=== PATIENT | male | born 1975 | race African-American/Black ===

== ENCOUNTER 2016-11-27 14:25 | Observation (INO) ==
[2016-11-27] MEDS ORDERED: ASPIRIN 325 MG TABLET PO STA (15:20)
[2016-11-27] MEDS ORDERED: ENOXAPARIN 100 MG/ML SYRINGE SUBCUT STA (15:20)
--- NOTE | 2016-11-27 15:23 | EKG Report ---
Stationary ECG Study [facility] ER Test Date: 11/27/2016 2:33:45 PM Pat Name: ALEX DORMAN Department: Room: Gender: M Signaling Project Engineer: Jocelyn Perry : 1975 Requested by: Keith Olvera Order Number: [id number] Reading MD: MUNA DESIR Intervals [place] Rate: 80 P: 81 CO: 139 QRS: 86 QRSD: 85 T: 73 QT: 392 QTc: 427 Interpretive Statements SINUS RHYTHM Electronically Signed On 12-01-16 07:22:32 PUBLIC HEALTH SERVICE OFFICER by MUNA DESIR [id number]
--- NOTE | 2016-11-27 15:24 | Emergency Department Note ---
Mayco Mckay Jamie, am scribing for, and in the presence of, Keith Castañeda MD 15: 08. Maddy Mckay James D, MD, personally performed the services described in this documentation, ascribed by Rickey Mao in my presence, and it is both accurate and complete 524 . Arrival - Arrival Chief Complaint: Chest Pain Stated Complaint: chest pain ED Nursing Triage Note: pt reports he started having chest tightness this afternoon. denies sob. Mode of Arrival: Ambulatory Limitations: No Limitations Source: Patient, RN Notes Reviewed - History of Present Illness HPI Narrative: Patient is a 41 y/o male who presents to the ED c/o chest tightness associated with SOB. Patient states that sxs onset on yesterday. He describes pain as constant and chest tightness. Patient denies nausea/vomiting, fever/chills, or diaphoresis. Onset (ago): hour(s) (2) Consistency: constant Severity: moderate Allergies/Adverse Reactions: Allergies Allergy/AdvReac Type Severity Reaction Status Date / Time No Known Allergies Allergy Unverified 11/27/16 14:37 Home Medications: Home Medications Medication Instructions Recorded Confirmed Type No Known Home Medications [No 11/27/16 11/27/16 History Known Home Medications] Review of System - Review of System 12 point system: reviewed and no additional remarkable complaints except as stated - Review of System Constitutional: Absent: chills, diaphoresis, fever, weakness Eyes: Absent: vision change Respiratory: Present: respiratory distress. Absent: cough Cardiovascular: Present: chest pain (Tightness) Gastrointestinal: Absent: abdominal pain, nausea, vomiting, diarrhea, constipation Musculoskeletal: Absent: joint swelling Skin: Absent: rash, change in color Neurological: Absent: headache, weakness, numbness, confusion Hematological/Lymphatic: Absent: easy bleeding, easy bruising Medical,Surgical,& Family Hx - Social History Smoking Status: Smoker, status unknown Exam Vital Signs: Vital Signs Temperature 98.3 F 11/27/16 14:35 Pulse Rate 75 11/27/16 14:35 Respiratory Rate 19 11/27/16 16:01 Blood Pressure 146/83 11/27/16 14:35 O2 Sat by Pulse Oximetry 100 11/27/16 14:35 GENERAL: This is a well-nourished well-developed black male in no apparent distress. VITAL SIGNS: Reviewed HEENT: Head is atraumatic and normocephalic. Pupils are equal round react to light. Extraocular movements are intact. Oropharynx is benign with moist mucous membranes. NECK: Neck is soft and supple without tenderness. There are no masses. There is no lymphadenopathy. LUNGS: Lungs are clear to auscultation. Chest rises symmetrically. There is no chest wall tenderness. CV: Heart is regular rate and rhythm without murmurs rubs or gallops. ABDOMEN: Abdomen is soft, nontender to palpation. There are no abdominal abnormal masses palpated. There is no organomegaly. Bowel sounds are present and active. SKIN: Skin is warm and dry. No rash. EXTREMITIES: Patient has full range of motion without tenderness. There is no pedal edema. NEUROLOGIC: Awake alert and oriented 4. Cranial nerves II through XII are grossly intact. Motor is 5 over 5 in all extremities bilaterally. Deep tendon reflexes are 2+ and bilaterally equal. Course - Consultations Consultation #1: Discussed with hospitalist. Patient will be admitted to their service. Time: 17:10 Results - Labs CBC & BMP: 11/27/16 15:27 11/27/16 15:27 Lab Results: I have reviewed the patients labs - EKG EKG results: interpreted by ERMD - Impressions EKG: Normal sinus rhythm with a rate of 80, normal ST-T waves, normal axis. - Diagnostic Findings Procedure: Chest x-ray: image reviewed by me (Hyperinflation bilaterally, no infiltrates, no cardiomegaly.) Disposition Clinical Impression: Chest pain, Nicotine addiction Case discussed with: patient Disposition: Still a Patient Condition: Stable Time of Disposition: 17:10
[2016-11-27 15:44] LABS: Basophils % 0.6 % (0.0-0.8); Eosinophils # 0.2 10*3/uL (0.0-0.87); Eosinophils % 2.9 % (0.00-10.9); Hematocrit 39.8 VOL% (42.0-52.0); Hemoglobin 13.9 GM/DL (14.0-18.0); Immature Granulocytes % 0.2 %; Immature Granulocytes Absolute 0.01 #; Lymphocytes # 1.4 10*3/uL (1.4-4.0); Lymphocytes % 26.4 % (21.2-54.2); Mean Corpuscular HGB Conc 34.9 GM/DL (32-36); Mean Corpuscular Hemoglobin 32 PG (27-34); Mean Corpuscular Volume 91.9 FL (87-102); Mean Platelet Volume 10.3 FL (9.6-12.0); Monocytes # 0.6 10*3/uL (0.11-0.8); Monocytes % 10.3 % (1.7-12.7); Neutrophils # 3.3 10*3/uL (1.4-7.4); Neutrophils % 59.6 % (38.7-73.9); Platelet Count 218 T/CUMM (130-400); Red Blood Count 4.33 MC/CUMM (3.8-5.5); Red Cell Distribution Width 13.2 % (9.3-17.3); White Blood Count 5.5 T/CUMM (4-12)
[2016-11-27] MEDS ORDERED: ENOXAPARIN 80 MG/0.8 ML SYRINGE SUBCUT ONE (15:50)
[2016-11-27] MEDS ORDERED: ASPIRIN 325 MG TABLET ONE (15:50)
[2016-11-27 15:54] LABS: PT Patient Result 10.6 SECS; Partial Thromboplastin Time 31.1 SECS (0-40)
--- NOTE | 2016-11-27 15:55 | XRay Report ---
History: Chest pain Date: 11/27/2016 Study: Chest x-ray PA and lateral Comparison exam: No previous The cardiomediastinal silhouette and pulmonary vasculature are unremarkable. The lungs and pleural spaces are clear. The osseous structures are unremarkable. Impression: No acute cardiopulmonary process PROCEDURE INTERPRETED AT [facility] Final Report Signed by: Dr. Jesi Pendleton
[2016-11-27 16:06] LABS: Albumin 3.9 G/DL (3.4-5.0); Bilirubin,Total 0.5 MG/DL (0.2-1.0); Calcium 9.2 MG/DL (8.5-10.1); Osmolality,Calculated 284.8 MOS/KG (273-304); Total Protein 7.7 G/DL (6.4-8.3)
[2016-11-27 17:02] LABS: Barbiturates Screen,Urine Negative (Negative); Benzodiazepines Screen,Urine Negative (Negative); Cannabinoid Screen,Urine Positive (Negative); Opiate Screen,Urine Negative (Negative); Phencyclidine Screen,Urine Negative (Negative)
[2016-11-27] MEDS ORDERED: ENOXAPARIN 40 MG/0.4 ML SYRINGE SUBCUT SCH (18:21)
[2016-11-27] MEDS ORDERED: ZALEPLON 5 MG CAPSULE PO PRN (18:21)
[2016-11-27] MEDS ORDERED: ONDANSETRON 4 MG/2 ML VIAL IV PRN (18:21)
[2016-11-27] MEDS ORDERED: ACETAMINOPHEN 325 MG TABLET PO PRN (18:21)
[2016-11-27] MEDS: SODIUM CHLORIDE 0.9% 1,000 ML IV SCH (18:24)
[2016-11-27] MEDS ORDERED: LORazepam 1 MG TABLET PO PRN (18:25)
--- NOTE | 2016-11-27 18:28 | Hospitalist History & Physical ---
Assessment and Plan (1) Chest pain Status: Acute Assessment and plan: The patient is admitted for observation. We'll rule out myocardial infarction by EKG and enzymes. We'll obtain cardiology evaluation in the morning. Current Visit: Yes Qualifiers: Chest pain type: chest pain on breathing Qualified Code(s): R07.1 - Chest pain on breathing History of Present Illness Chief complaint: left chest pressure History of present illness: Mr. Carlisle is a 41 year old male who came to the hospital on account of left- sided chest pressure which is nonexertional but gets worse with deep breathing. The patient's pain is not associated with fever, chills, abdominal discomfort. It is associated with anxiety. Home Medications Medication Instructions Recorded Confirmed Type No Known Home Medications [No 11/27/16 11/27/16 History Known Home Medications] Allergies Allergy/AdvReac Type Severity Reaction Status Date / Time No Known Allergies Allergy Unverified 11/27/16 14:37 Medical,Surgical,& Family Hx - Medical History Musculoskeletal: History of: Musculoskeletal Problems (Broken and fixed arm) - Surgical History Thoracic Surgeries: Patient denies;: Organ Transplant Abdominal Surgeries: Surgical HX of: Appendectomy, EGD (Ulcer in the past) - Family History Family History: Reports;: Family Cancer (Grandfather), Family Hypertension ( Father, Brother, Sister), Additional Family History (Father stomach aneurysm) - Social History Smoking Status: Smoker, status unknown Marital Status: Single Lives With:: Alone Functional capacity: independent ambulation 12 point system: reviewed and no additional remarkable complaints except as stated Exam - Constitutional Exam: Constitutional System: Mild distress. No tremulousness. Appears anxious Head: Normocephalic, atraumatic. Ears, Nose and Throat System: No evidence of Otitis or Mastoiditis. No epistaxis or discharge Eyes System: Pupils equal, round, and reactive. Extraocular muscles intact. Neck: Supple, without adenopathy, No jugular venous distention. No thyromegaly , neck mass, or prior surgery apparent. Respiratory System: Chest clear to auscultation. Cardiovascular System: Heart with regular rate and rhythm. No murmur. GI System: Abdomen soft, nontender. Normoactive bowel sounds present. Musculoskeletal System: limbs with no pedal edema. Full distal pulses. Neurological System: No discernable sensory deficit. No aphasia Psychiatric System: Conversation is rational Results - Labs CBC & BMP: 11/27/16 15:27 11/27/16 15:27 Lab Results: I have reviewed the past 24 hour labs
--- NOTE | 2016-11-27 21:31 | EKG Report ---
Stationary ECG Study [facility] Test Date: 11/27/2016 9:30:46 PM Pat Name: ALEX DORMAN Department: Room: 123 Gender: M Unemployment Specialist: EM NEWMAN : 1975 Requested by: Keith Olvera Order Number: [id number] Reading MD: MUNA DESIR Intervals [place] Rate: 77 P: -13 [place]: 132 QRS: -22 QRSD: 81 T: -6 QT: 383 QTc: 415 Interpretive Statements SINUS RHYTHM Electronically Signed On 12-01-16 07:37:01 HAND FILER BALANCE WHEEL by MUNA DESIR [email or web address]
[2016-11-28] MEDS: SODIUM CHLORIDE 0.9% 1,000 ML IV SCH ×2 (02:24→10:51)
[2016-11-28 04:04] LABS: Basophils # 0.1 10*3/uL (0.0-0.2); Basophils % 0.7 % (0.0-0.8); Eosinophils # 0.4 10*3/uL (0.0-0.87); Eosinophils % 5.8 % (0.00-10.9); Hematocrit 36.3 VOL% (42.0-52.0); Hemoglobin 12.2 GM/DL (14.0-18.0); Immature Granulocytes % 0.3 %; Immature Granulocytes Absolute 0.02 #; Lymphocytes # 2.3 10*3/uL (1.4-4.0); Lymphocytes % 32.6 % (21.2-54.2); Mean Corpuscular HGB Conc 33.6 GM/DL (32-36); Mean Corpuscular Hemoglobin 32 PG (27-34); Mean Platelet Volume 11.1 FL (9.6-12.0); Monocytes # 0.9 10*3/uL (0.11-0.8); Monocytes % 12.4 % (1.7-12.7); Neutrophils # 3.3 10*3/uL (1.4-7.4); Neutrophils % 48.2 % (38.7-73.9); Platelet Count 215 T/CUMM (130-400); Red Blood Count 3.86 MC/CUMM (3.8-5.5); Red Cell Distribution Width 13.3 % (9.3-17.3); White Blood Count 6.9 T/CUMM (4-12)
[2016-11-28 04:32] LABS: Blood Urea Nitrogen 17 MG/DL (7-18); Calcium 8.6 MG/DL (8.5-10.1); Glucose 88 MG/DL (74-106); Magnesium 2.2 MG/DL (1.8-2.4); Osmolality,Calculated 292.4 MOS/KG (273-304); Potassium 4.1 MMOL/L (3.5-5.1); Sodium 147 MMOL/L (136-145); Troponin I Only < 0.015 NG/ML (0.00-0.045)
[2016-11-28 04:37] LABS: Risk Ratio 1.82; Thyroid Stimulating Hormone 4.62 uIU/ml (0.358-3.74)
--- NOTE | 2016-11-28 06:12 | EKG Report ---
Stationary ECG Study [facility] Test Date: 11/27/2016 6:28:44 PM Pat Name: ALEX DORMAN Department: Room: 123 Gender: M Software Engineer Advisor: : 1975 Requested by: Keith Olvera Order Number: [id number] Reading MD: MUNA DESIR Intervals [place] Rate: 58 P: 78 [place]: 131 QRS: 89 QRSD: 89 T: 83 QT: 463 QTc: 460 Interpretive Statements SINUS RHYTHM Electronically Signed On 12-01-16 07:30:54 BREAKFAST SERVER by MUNA DESIR [id number]
[2016-11-28] MEDS ORDERED: PANTOPRAZOLE 40 MG TABLET PO SCH (09:00)
[2016-11-28] MEDS ORDERED: traMADol 50 MG TABLET PO PRN (10:28)
[2016-11-28 10:46] VITALS: BP 130/80
[2016-11-28] MEDS ORDERED: NAPROXEN 250 MG TABLET PO SCH (11:00)
[2016-11-28] MEDS ORDERED: ACETAMINOPHEN 325 MG TABLET PO SCH (11:00)
[2016-11-28] MEDS ORDERED: GABAPENTIN 100 MG CAPSULE PO SCH (11:00)
--- NOTE | 2016-11-28 11:37 | Discharge Summary ---
Hospital Course - Hospital Course Hospital Course: This patient's a 41-year-old -[place] male who came in the hospital with left-sided chest pressure. It was nonexertional only gets worse with deep breathing. Associated with fever chills abdominal discomfort. He was admitted for observation by Dr. Orellana. We obtain a cardiology consult. His serial troponins were negative. His cholesterol looked good with elevated HDL. Patient will be set up for an outpatient stress test later this week he is eligible for discharge at this time with medications to help with chest wall pain - Time spent with patient Time with patient DS: Less than 30 minutes Specialty Discharge - Follow Up or Referrals Discharge Plan - Discharge Data Disposition: Disch To Home/Self Care Condition at Discharge: Stable Discharge Diet: advance to your usual diet - Discharge Medications New Acetaminophen Tab [Tylenol Tab] 325 mg PO BID tablet Gabapentin Cap/Tab [Neurontin Cap/Tab] 100 mg PO BID #20 capsule Naproxen [Naprosyn Tab] 250 mg PO BID #20 tablet traMADol TAB [Ultram] 50 mg PO BID PRN #20 tablet PRN Reason: Pain - Follow Up or Referral - Forms/Instructions Instructions: Angina (GEN) Additional Discharge Instructions: We'll have a follow-up outpatient stress test later this week. Please inform the patient of the date. Exam - Constitutional Vitals: Period Temp Pulse Resp BP Sys/[place]acon Pulse Ox Last 24 Hr 97.3 F-98.8 F 66-84 16-23 115-139/70-88 96-100 General appearance: normal weight - Head Head exam: Present: normal inspection - ENT ENT exam: Present: normal exam - Neck Neck exam: Present: normal inspection - Respiratory Respiratory exam: Present: clear to auscultation bilaterally - Cardiovascular Cardiovascular exam: Present: regular rate and rhythm - GI/Abdominal GI/Abdominal exam: Present: normal bowel sounds - Extremities Exam Extremities exam: Present: normal inspection - Back Exam Back exam: Present: normal inspection - Neurological Exam Neurological exam: Present: alert - Psychiatric Psychiatric exam: Present: normal affect - Skin Skin exam: Present: normal color Discharge Results Procedures and tests throughout hospitalization: Pending Orders 11/27/16 18:10 MRSA Surveillence, Inf Control Routine Labs on day of discharge: Labs from last 24 hours 11/28/16 11/28/16 11/28/16 03:09 03:09 03:09 WBC 6.9 RBC 3.86 Hgb 12.2 L Hct 36.3 L MCV 94.0 MCH 32 MCHC 33.6 RDW 13.3 Plt Count 215 MPV 11.1 Neut % (Auto) 48.2 Lymph % (Auto) 32.6 [place] % (Auto) 12.4 Eos % (Auto) 5.8 Baso % (Auto) 0.7 Neut # (Auto) 3.3 Lymph # (Auto) 2.3 [place] # (Auto) 0.9 H Eos # (Auto) 0.4 Baso # (Auto) 0.1 Immature Gran % 0.3 Nucleated RBC % 0.0 Immature Gran # 0.02 Nucleated RBCs # 0.00 Sodium 147 H Potassium 4.1 Chloride 113 H Carbon Dioxide 24 Anion Gap 14.1 BUN 17 Creatinine 1.00 GFR Calculation 118 BUN/Creatinine Ratio 17.00 Glucose 88 Calculated Osmolality 292.4 Calcium 8.6 Magnesium 2.2 Total Creatine Kinase 199 Troponin I < 0.015 Triglycerides 70 Cholesterol 142 LDL Cholesterol 58.0 VLDL Cholesterol 14.0 HDL Cholesterol 78 H Heart Disease Risk Ratio 1.82 TSH 3rd Generation 4.620 H 11/27/16 11/27/16 21:40 19:04 WBC RBC Hgb Hct MCV MCH MCHC RDW Plt Count MPV Neut % (Auto) Lymph % (Auto) [place] % (Auto) Eos % (Auto) Baso % (Auto) Neut # (Auto) Lymph # (Auto) [place] # (Auto) Eos # (Auto) Baso # (Auto) Immature Gran % Nucleated RBC % Immature Gran # Nucleated RBCs # Sodium Potassium Chloride Carbon Dioxide Anion Gap BUN Creatinine GFR Calculation BUN/Creatinine Ratio Glucose Calculated Osmolality Calcium Magnesium Total Creatine Kinase Troponin I < 0.015 < 0.015 Triglycerides Cholesterol LDL Cholesterol VLDL Cholesterol HDL Cholesterol Heart Disease Risk Ratio TSH 3rd Generation Preliminary micro results at discharge 11/27/16 18:10 MRSA Surveillance Culture - Preliminary Nares - Both Nares (Mrsa screen) No MRSA isolated. DS: Provider Date of admission: 11/27/16 17:08 Primary care physician: . No PCP Attending physician on admission: Corey Louie MD Consults: 11/27/16 18:21 Consult to Physician [CONS] Routine Comment: chest pain Consulting Provider: Jack Franco 11/27/16 18:25 Consult to Pharmacy [CONS] Routine Reason for Pharmacy Consult: Adjust Meds Renal Funct Discharging clinician: Corey Louie MD
[2016-11-28] MEDS ORDERED: GABAPENTIN 300 MG CAPSULE PO SCH (21:00)
--- NOTE | 2016-11-29 00:45 | Cardiology Consult Note ---
I, Danisha Sam, RN, am scribing for, and in the presence of, Hair Macias MD 00:41. Assessment and Plan (1) Chest pain Status: Acute Assessment and plan: Patient's chest pain is reproducible suggesting musculoskeletal chest wall pain. Troponins 3 has been negative and patient does not have any significant risk factors. EKG does not suggest ACS. Will will plan for outpatient stress test or Monday at [facility] [place]. I have added Aleve, gabapentin, tramadol and Tylenol for patient's chest wall pain. [ i saw theprt 11/28/16 in am; the note finished later] I discussed with the patient the benefits of stopping use of all tobacco products. I discussed the problems with continued use the tobacco, the benefits of stopping it, and options of treatment. The patient is considering it. Thank you for allowing to participate in this patient's care Qualifiers: Chest pain type: chest pain on breathing Qualified Code(s): R07.1 - Chest pain on breathing (2) Tobacco abuse Status: Chronic Assessment and plan: Counseled patient on the importance of smoking cessation. (3) Cannabis abuse Status: Acute Assessment and plan: Counseled patient on reportedly has to quit drug abuse. (4) Chest wall pain Status: Acute History of Present Illness - Data of Consult Patient: new to practice Consult date: 11/28/16 Requesting Physician: Corey Louie - Consult Narrative Reason for consult: chest pain History of present illness: Mr. Calrisle is a 41 year old male patient without known coronary artery disease. 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 He presented to [place] [facility] for further evaluation of chest discomfort. He has risk factors significant for current everyday smoker ( one pack per day) and sedentary lifestyle. He denies any significant family history of heart disease and does not have any significant past medical history. However, he reports that he has had a stomach ulcer in the past. He does not take any medications on a daily basis. He reports that he has never had a cardiology workup. Patient denies using any recreational drugs. However , his drug screen was positive for cannabis. He was in his usual state of health until Monday afternoon when he began to experience mild nonradiating chest discomfort. She describes this pain as midsternal and left chest tightness and pressure. He reports that this pain started Monday afternoon while watching television and was associated with mild shortness of breath and palpitations. He states that this feeling was just very uncomfortable. He denies nausea, activity intolerance, dyspnea upon exertion, diaphoresis, orthopnea, edema and PND. He reports that this pain was not worsened with activity. He cannot identify any alleviating or aggravating factors at this time. He reports that this pain was still present on Monday when he woke up and he decided it was best to go to the emergency room to be further evaluated. He was seen and evaluated in the CCU. He reports that his chest pain is still present but slightly better. This pain is reproducible upon exam and he reports that this is the same pain that he experienced. His troponins have been negative 3. EKG does not suggest ACS. Labs are unremarkable. He is currently sinus rhythm per manager monitoring without any overt arrhythmias or ectopy noted. Vital signs are stable. CC: Corey Louie MD - Home Medications and Allergies Home Medications: Home Medications Medication Instructions Recorded Confirmed Type Acetaminophen Tab [Tylenol Tab] 325 mg PO BID tablet 11/28/16 Rx Gabapentin Cap/Tab [Neurontin 100 mg PO BID #20 capsule 11/28/16 Rx Cap/Tab] Naproxen [Naprosyn Tab] 250 mg PO BID #20 tablet 11/28/16 Rx traMADol TAB [Ultram] 50 mg PO BID PRN #20 tablet 11/28/16 Rx Allergies/Adverse Reactions: Allergies Allergy/AdvReac Type Severity Reaction Status Date / Time No Known Allergies Allergy Unverified 11/27/16 14:37 - Constitutional Constitutional: Absent: anorexia, chills, daytime sleepiness, excessive sweating , fatigue, fever(s), frequent falls, headache(s), weakness, weight gain, weight loss - EENT Eyes: Absent: blurry vision, diplopia Nose, mouth and throat: Absent: dysphagia, headache(s) - Cardiovascular Cardiovascular: Present: chest pain at rest, dyspnea, palpitations. Absent: chest pain with activity, claudication, diaphoresis, dyspnea on exertion, edema , radiating jaw, neck or arm pain, lightheadedness, orthopnea, PND - Respiratory Respiratory: Present: dyspnea. Absent: cough, dyspnea on exertion, wheezing, snoring, pain on inspiration, change in phlegm color - Gastrointestinal Gastrointestinal: Absent: abdominal pain, change in bowel habits, coffee ground emesis, constipation, diarrhea, dyspepsia, dysphagia, heartburn, hematemesis, hematochezia, loose stools, melena, nausea, vomiting - Neurological Neurological: Absent: dizziness, frequent falls, headache(s), syncope - Psychiatric Psychiatric: Absent: anxiety, confusion, depression, panic attacks - Hematologic/Lymphatic Hematologic/Lymphatic: Absent: easy bleeding, easy bruising, lymphadenopathy Medical,Surgical,& Family Hx - Medical History Cardio: No history of: Cardiac Dysrhythmia, CHF, CAD, Hypertension, CT, Cardiovascular Problems Psychological: No history of: Anxiety Disorders, Psychiatric Problems Neurology: No history of: Neurological Problems Endocrine: No history of: Endocrine Problems Rheumatology: No history of;: Rheumatological Problems Respiratory: No history of: Respiratory Problems Genitourinary: No history of: Problems Gastrointestinal: History of: GI Problems (Patient reports he had a stomach ulcer in the past.) Musculoskeletal: History of: Musculoskeletal Problems (Broken and fixed arm) Hematology: No history of: Blood Disorders - Surgical History Cardiac Surgeries: Patient Denies: Cardiac Catheterization Thoracic Surgeries: Patient denies;: Organ Transplant Abdominal Surgeries: Surgical HX of: Appendectomy, EGD (Ulcer in the past) - Family History Family History: Reports;: Family Cancer (Grandfather), Family Hypertension ( Father, Brother, Sister), Additional Family History (Father stomach aneurysm) - Social History Smoking Status: Current every day smoker Frequency of Alcohol Use: Occasionally Type of Drug Use: Marijuana Physical Examination Vital Signs Temp Pulse Resp BP Pulse Ox 98.3 F 75 20 146/83 100 11/27/16 14:35 11/27/16 14:35 11/27/16 14:35 11/27/16 14:35 11/27/16 14:35 General: Present: Appears Well, No Apparent Distress Neck: Present: Supple Neck, Midline Trachea, No JVD/HJR, No Masses, No Bruit, No Lymphadenopathy, No Thyromegaly Cardiac: Present: Reg Rate and Rhythm, Regular Rate, Regular Rhythm, No Murmur. Absent: Gallop, Tachycardia, Bradycardia Lungs: Present: Normal Exam, Clear Ascult./Percussion, Normal Breath Sounds, No Wheeze, Rales, Rhonchi. Absent: Oxygen Abdomen: Present: Soft, Active Bowel Sounds, No Masses, No Pulsations/Bruits. Absent: Tender Skin: Present: Clear. Absent: Rash, Suspicious Lesions, Ulceration Extremities: Present: Normal Gait, No Clubbing, No Cyanosis, No Edema, Normal Upper Extr. Pulses, Normal Lower Extr. Pulses Result/EKG - Labs CBC & BMP: 11/28/16 03:09 11/28/16 03:09 Lab Results: I have reviewed the past 24 hour labs Labs: Laboratory Results - last 24 hr 11/27/16 11/27/16 11/28/16 19:04 21:40 03:09 WBC 6.9 RBC 3.86 Hgb 12.2 L Hct 36.3 L MCV 94.0 MCH 32 MCHC 33.6 RDW 13.3 Plt Count 215 MPV 11.1 Neut % (Auto) 48.2 Lymph % (Auto) 32.6 [place] % (Auto) 12.4 Eos % (Auto) 5.8 Baso % (Auto) 0.7 Neut # (Auto) 3.3 Lymph # (Auto) 2.3 [place] # (Auto) 0.9 H Eos # (Auto) 0.4 Baso # (Auto) 0.1 Immature Gran % 0.3 Nucleated RBC % 0.0 Immature Gran # 0.02 Nucleated RBCs # 0.00 Sodium Potassium Chloride Carbon Dioxide Anion Gap BUN Creatinine GFR Calculation BUN/Creatinine Ratio Glucose Calculated Osmolality Calcium Magnesium Total Creatine Kinase Troponin I < 0.015 < 0.015 Triglycerides Cholesterol LDL Cholesterol VLDL Cholesterol HDL Cholesterol Heart Disease Risk Ratio [facility] 3rd Generation 11/28/16 11/28/16 03:09 03:09 WBC RBC Hgb Hct MCV MCH MCHC RDW Plt Count MPV Neut % (Auto) Lymph % (Auto) [place] % (Auto) Eos % (Auto) Baso % (Auto) Neut # (Auto) Lymph # (Auto) [place] # (Auto) Eos # (Auto) Baso # (Auto) Immature Gran % Nucleated RBC % Immature Gran # Nucleated RBCs # Sodium 147 H Potassium 4.1 Chloride 113 H Carbon Dioxide 24 Anion Gap 14.1 BUN 17 Creatinine 1.00 GFR Calculation 118 BUN/Creatinine Ratio 17.00 Glucose 88 Calculated Osmolality 292.4 Calcium 8.6 Magnesium 2.2 Total Creatine Kinase 199 Troponin I < 0.015 Triglycerides 70 Cholesterol 142 LDL Cholesterol 58.0 VLDL Cholesterol 14.0 HDL Cholesterol 78 H Heart Disease Risk Ratio 1.82 TSH 3rd Generation 4.620 H - EKG EKG results: interpreted by me, sinus rhythm I, Hair Macias MD, personally performed the services described in this documentation, ascribed by Danisha Sam RN in my presence, and it is both accurate and complete .
== END 2016-11-28 12:38 | disposition home or self-care (01) ==
LOC: N.ED 14:25 → N.EDINP 14:25 → N.CC 17:48
PROVIDERS: ADMIT Internal Medicine; ATTEND Internal Medicine